=== PATIENT | female | born 1990 | race Caucasian/White ===

== ENCOUNTER 2019-05-30 21:22 | Emergency (ER) | payer OTHER ==
[2019-05-30] MEDS ORDERED: DEXAMETHASONE SOD PHOSPHATE 4 MG/ML 1ML VIAL ONE (23:04)
== END 2019-05-30 23:14 | disposition home or self-care (01) ==
LOC: EDH 21:22
DX: S39.012A Strain of muscle, fascia and tendon of lower back, initial encounter (principal); J45.909 Unspecified asthma, uncomplicated; M19.90 Unspecified osteoarthritis, unspecified site; Z72.0 Tobacco use; Z88.6 Allergy status to analgesic agent; X58.XXXA Exposure to other specified factors, initial encounter; Y93.89 Activity, other specified; Y92.89 Other specified places as the place of occurrence of the external cause; Y99.8 Other external cause status
CPT/HCPCS: 81025; 96372; 99283; J1100

== ENCOUNTER 2020-06-30 22:50 | Emergency (ER) | payer SELFPAY ==
[2020-06-30] MEDS ORDERED: CYCLOBENZAPRINE HCL 10 MG TABLET ONE (23:31)
[2020-06-30] MEDS ORDERED: ONDANSETRON 4MG INJ ONE (23:31)
[2020-06-30] MEDS ORDERED: MORPHINE 4 MG SYG ONE (23:32)
== END 2020-07-01 02:26 | disposition home or self-care (01) ==
LOC: EDH 22:50
DX: M54.31 Sciatica, right side (principal); M19.90 Unspecified osteoarthritis, unspecified site; J45.909 Unspecified asthma, uncomplicated; Z72.0 Tobacco use; Z88.6 Allergy status to analgesic agent
CPT/HCPCS: 96374; 96375; 99284; J2270; J2405

== ENCOUNTER 2020-11-05 03:08 | Emergency (ER) | payer OTHER ==
[~2020-11-05] VITALS: Ht 162.6 cm; Wt 70.3 kg
[2020-11-05 03:11] VITALS: BP 128/62
[2020-11-05] MEDS ORDERED: UNASYN 3GM VIAL IV STA (03:35)
[2020-11-05] MEDS ORDERED: AMP/SULBAC 3GM+NS 100ML 100 ML IV ONE (04:00)
[2020-11-05] MEDS ORDERED: AMPICILLIN/SULBAC 1.5GM VIAL ONE (04:09)
[2020-11-05 04:53] VITALS: BP 125/63
[2020-11-05] MEDS ORDERED: MORPHINE 4 MG SYG ONE (05:35)
[2020-11-05] MEDS ORDERED: ONDANSETRON 4MG INJ ONE (05:35)
[2020-11-05] MEDS ORDERED: METH4TAB3 PO (05:41)
[2020-11-05] MEDS ORDERED: AMOX-429 PO (05:41)
[2020-11-05 05:54] LABS: BASOPHILS % (AUTO) 0.2 % (0.0-5.0); EOSINOPHILS % (AUTO) 1.6 % (0.0-8.0); HEMATOCRIT 29.4 % (36-48); LYMPHOCYTES % (AUTO) 21.7 % (21.0-51.0); MEAN CORPUSCULAR HEMOGLOBIN 32.3 pg (27.0-33.0); MEAN CORPUSCULAR VOLUME 94.8 fL (79-99); MONOCYTES % (AUTO) 5.5 % (3.0-13.0); NEUTROPHILS % (AUTO) 70.6 % (40.0-77.0); PLATELET COUNT (AUTO) 263 K/uL (130-400); RED CELL DISTRIBUTION WIDTH 11.4 % (11.0-15.5); WHITE BLOOD COUNT (AUTO) 14.1 K/uL (4.8-10.8)
[2020-11-05 05:59] VITALS: BP 122/64
[2020-11-05] MEDS ORDERED: ONDANSETRON 4MG INJ IVP ONE (06:00)
[2020-11-05] MEDS ORDERED: MORPHINE 4 MG SYG IV ONE (06:00)
[2020-11-05 06:05] LABS: CREATININE 0.6 mg/dL (0.5-1.5); POTASSIUM 3.3 mmol/L (3.5-5.1)
[2020-11-05] MEDS ORDERED: TRAM50TA4 PO (06:05)
[2020-11-05 06:09] LABS: ALBUMIN 3.5 g/dL (3.5-5.0); BILIRUBIN,TOTAL 0.4 mg/dL (0.2-1.0); TOTAL PROTEIN, SERUM 7.1 g/dL (6.0-8.3)
== END 2020-11-05 06:32 | disposition home or self-care (01) ==
LOC: EDH 03:28
DX: K02.7 Dental root caries (principal); J32.0 Chronic maxillary sinusitis; J45.909 Unspecified asthma, uncomplicated; Z79.899 Other long term (current) drug therapy
CPT/HCPCS: 36415; 70486; 80053; 85025; 96365; 96375; 99284; J0295 ×2; J2270; J2405

== ENCOUNTER 2022-09-30 01:04 | Emergency (ER) | payer BC ==
[~2022-09-30] VITALS: Ht 154.9 cm; Wt 69.9 kg
[~2022-09-30 01:04] MED LIST: AMOX-429 PO; METH4TAB3 PO; TRAM50TA4 PO
[2022-09-30 02:15] LABS: BASOPHILS % (AUTO) 0.2 % (0.0-5.0); EOSINOPHILS % (AUTO) 0.2 % (0.0-8.0); HEMATOCRIT 30.8 % (36-48); LYMPHOCYTES % (AUTO) 4.3 % (21.0-51.0); MEAN CORPUSCULAR HEMOGLOBIN 32.4 pg (27.0-33.0); MEAN CORPUSCULAR HGB CONC 34.7 g/dL (32.0-36.0); MEAN CORPUSCULAR VOLUME 93.3 fL (79-99); MONOCYTES % (AUTO) 4.8 % (3.0-13.0); NEUTROPHILS % (AUTO) 89.3 % (40.0-77.0); PLATELET COUNT (AUTO) 245 K/uL (130-400); RED CELL DISTRIBUTION WIDTH 12.6 % (11.0-15.5); WHITE BLOOD COUNT (AUTO) 24.7 K/uL (4.8-10.8)
[2022-09-30 02:29] LABS: CARBON DIOXIDE 25 mmol/L (21-32); CHLORIDE 102 mmol/L (101-111); CREATININE 0.5 mg/dL (0.5-1.5); GLOMERULAR FILTR. RATE CALC 128 mL/min (>90); GLUCOSE,RANDOM 125 mg/dL (70-105); POTASSIUM 3.3 mmol/L (3.5-5.1); SODIUM SERUM 135 mmol/L (136-145); UREA NITROGEN, BLOOD 11 mg/dL (7-18)
[2022-09-30 02:55] LABS: ALANINE AMINOTRANSFERASE 41 U/L (12-78); ALBUMIN 3.2 g/dL (3.5-5.0); ASPARTATE AMINOTRANSFERASE 28 U/L (10-37); HCG,QUANTITATIVE 19765 mIU/mL (0-5)
[2022-09-30 02:56] LABS: LIPASE < 50 U/L (114-286)
[2022-09-30] MEDS ORDERED: MORPHINE 4 MG SYG IVP ONE (04:00)
[2022-09-30] MEDS ORDERED: ONDANSETRON 4MG INJ IVP ONE (04:00)
[2022-09-30] MEDS ORDERED: HYDR-4060 PO (04:14)
[2022-09-30 05:30] VITALS: BP 105/64
== END 2022-09-30 05:36 | disposition home or self-care (01) ==
LOC: EDH 01:04
DX: O03.4 Incomplete spontaneous abortion without complication (principal); Z79.52 Long term (current) use of systemic steroids; Z3A.08 8 weeks gestation of pregnancy
CPT/HCPCS: 99284; 96374; 76801; 96375; 80053; 84702; 83690; 85025; 86900; 86901; 36415; J2405; J2270

== ENCOUNTER 2022-10-04 15:21 | Observation (INO) | payer BC ==
[~2022-10-04] VITALS: Ht 162.6 cm; Wt 69.9 kg
[~2022-10-04 15:21] MED LIST changes: +HYDR-4060 PO
[2022-10-04 16:17] LABS: BASOPHILS % (AUTO) 0.3 % (0.0-5.0); EOSINOPHILS % (AUTO) 1.5 % (0.0-8.0); HEMATOCRIT 29.2 % (36-48); LYMPHOCYTES % (AUTO) 15.3 % (21.0-51.0); MEAN CORPUSCULAR HEMOGLOBIN 32.4 pg (27.0-33.0); MEAN CORPUSCULAR HGB CONC 34.9 g/dL (32.0-36.0); MEAN CORPUSCULAR VOLUME 92.7 fL (79-99); MONOCYTES % (AUTO) 6.6 % (3.0-13.0); NEUTROPHILS % (AUTO) 75.3 % (40.0-77.0); PLATELET COUNT (AUTO) 297 K/uL (130-400); RED BLOOD CELL COUNT(AUTO) 3.15 MIL/uL (4.00-5.50); RED CELL DISTRIBUTION WIDTH 12.6 % (11.0-15.5); WHITE BLOOD COUNT (AUTO) 15.1 K/uL (4.8-10.8)
[2022-10-04] MEDS ORDERED: ACETAMINOPHEN 500 MG TABLET PO ONE (16:30)
[2022-10-04 16:32] LABS: APPEARANCE,URINE CLEAR (CLEAR); BILIRUBIN,URINE NEGATIVE (NEGATIVE); COLOR,URINE YELLOW (YELLOW); GLUCOSE, URINE (UA) NEGATIVE (NEGATIVE); KETONES,URINE 40 mg/dL (NEGATIVE); LEUKOCYTE ESTERASE ,URINE NEGATIVE Leu/uL (NEGATIVE); NITRATE,URINE NEGATIVE (NEGATIVE); OCCULT BLOOD,URINE MODERATE (NEGATIVE); PH,URINE 7.5 (5.0-8.0); PROTEIN,URINE 20 mg/dL (NEGATIVE); UROBILINOGEN,URINE 0.2 mg/dL (0.2-1.0)
[2022-10-04 16:40] LABS: AMPHET/METH SCREEN,URINE POSITIVE (NEGATIVE); BARBITURATE SCREEN, URINE NEGATIVE (NEGATIVE); BENZODIAZEPINES SCREEN,URINE NEGATIVE (NEGATIVE); CANNABINOID SCREEN,URINE POSITIVE (NEGATIVE); COCAINE SCREEN,URINE NEGATIVE (NEGATIVE); OPIATE SCREEN,URINE NEGATIVE (NEGATIVE); PHENCYCLIDINE SCREEN,URINE NEGATIVE (NEGATIVE)
[2022-10-04 16:42] LABS: ALBUMIN 3.2 g/dL (3.5-5.0); CREATININE 0.5 mg/dL (0.5-1.5)
[2022-10-04 16:48] LABS: BACTERIA,URINE FEW /HPF (None Seen); MUCUS,URINE FEW LPF (None Seen); RBC,URINE 26-50 /HPF (0-1); SQUAMOUS EPITHELIAL CELL,UR MOD /HPF (0-2); YEAST,URINE BUDDING RARE /HPF (None Seen)
[2022-10-04] MEDS ORDERED: POTASSIUM BICARB/CIT AC 25 MEQ TABLET.EFF PO ONE ×2 (17:00)
[2022-10-04] MEDS ORDERED: IOHEXOL-350 75 ML VIAL IV ONE (17:09)
[2022-10-04 19:08] LABS: POTASSIUM 3.4 mmol/L (3.5-5.1)
[2022-10-04] MEDS ORDERED: CEFAZOLIN SODIUM 2 GM VIAL IVPB SCH ×2 (22:00→23:00)
[2022-10-04] MEDS ORDERED: ONDANSETRON 4MG INJ IVP PRN (22:30)
[2022-10-04] MEDS ORDERED: IBUPROFEN 600 MG TABLET PO PRN (22:30)
[2022-10-04] MEDS ORDERED: ACETAMINOPHEN WITH CODEINE 1 TAB TAB PO PRN (22:30)
[2022-10-04] MEDS ORDERED: 0.9%NACL 1000ML 1,000 ML IV SCH (23:00)
[2022-10-04] MEDS: ZOSYN 3.375GM +NS 50ML IVPB SCH (23:13)
[2022-10-04] MEDS: 0.9%NACL 50ML IV SCH (23:13)
[2022-10-04] MEDS: MORPHINE 2 MG SYG IVP PRN (23:19)
[2022-10-05] VITALS (19 sets, daily range): BP systolic 95–129; BP diastolic 49–75
[2022-10-05] MEDS: DEXTROSE 5%-LACTATED RINGERS 1,000 ML IV SCH ×2 (00:52→07:23)
[2022-10-05] MEDS: MORPHINE 2 MG SYG IVP PRN ×2 (02:45→07:41)
[2022-10-05] MEDS ORDERED: MISOPROSTOL 200 MCG TABLET VG SCH ×2 (03:00→05:00)
[2022-10-05] MEDS: ZOSYN 3.375GM +NS 50ML IVPB SCH (07:22)
[2022-10-05] MEDS: 0.9%NACL 50ML IV SCH (07:22)
[2022-10-05] MEDS ORDERED: MIDAZOLAM HCL 1 MG/ML 2ML VIAL ONE (10:49)
[2022-10-05] MEDS ORDERED: MISOPROSTOL 200 MCG TABLET ONE (11:25)
[2022-10-05] MEDS ORDERED: OXYTOCIN 10 USP UNITS/ML ONE (11:29)
== END 2022-10-05 18:40 | disposition home or self-care (01) ==
LOC: EDH 15:21 → INTOOBSV 22:17 → EDHIP 22:17 → WSH 23:54
PROVIDERS: ADMIT Internal Medicine; ATTEND Internal Medicine
DX: O03.4 Incomplete spontaneous abortion without complication (principal); O03.37 Sepsis following incomplete spontaneous abortion; O99.321 Drug use complicating pregnancy, first trimester; F19.90 Other psychoactive substance use, unspecified, uncomplicated; Z3A.10 10 weeks gestation of pregnancy
CPT/HCPCS: 59820; 96365; 96375; 99285; 83735; 84132; 80053; 80305; 85025; 86850; 86900; 86901; 87040 ×2; 83605; 81001; 36415; 74177; 76856; 93005; 96376; 96366; 96367; J2270 ×3; J2543 ×2; Q9967; G0378 ×4; A4606; J2250; J2590; J0690 ×2; J7120

== ENCOUNTER 2023-06-11 15:21 | Emergency (ER) | payer BC ==
[~2023-06-11] VITALS: Ht 162.6 cm; Wt 59.0 kg
[2023-06-11] MEDS: 0.9%NACL 1000ML 1,000 ML IV ONE (18:55)
[2023-06-11] MEDS: ONDANSETRON 4MG INJ IVP ONE (18:55)
[2023-06-11] MEDS: MORPHINE 4 MG SYG IVP ONE (18:56)
[2023-06-11 19:17] LABS: BASOPHILS # (AUTO) 0.05 K/uL (0.00-0.20); BASOPHILS % (AUTO) 0.6 % (0.0-5.0); EOSINOPHILS # (AUTO) 0.44 K/uL (0.00-0.70); EOSINOPHILS % (AUTO) 4.9 % (0.0-8.0); HEMATOCRIT 34.7 % (36-48); IMMATURE GRANULOCYTE ABSOLUTE 0.02 K/uL (0-1); LYMPHOCYTES # (AUTO) 3.2 K/uL (1.0-4.8); MEAN CORPUSCULAR HEMOGLOBIN 31.6 pg (27.0-33.0); MEAN CORPUSCULAR VOLUME 92.8 fL (79-99); MONOCYTES # (AUTO) 0.6 K/uL (0.1-1.0); MONOCYTES % (AUTO) 6.4 % (3.0-13.0); NEUTROPHILS # (AUTO) 4.8 K/uL (1.8-7.7); NEUTROPHILS % (AUTO) 52.9 % (40.0-77.0); PLATELET COUNT (AUTO) 365 K/uL (130-400); RED BLOOD CELL COUNT(AUTO) 3.74 MIL/uL (4.00-5.50); WHITE BLOOD COUNT (AUTO) 9.1 K/uL (4.8-10.8)
[2023-06-11 19:32] LABS: INR <= 0.93 (0.85-1.15); PROTHROMBIN TIME 10.3 SEC (9.6-11.6)
[2023-06-11 19:33] LABS: PARTIAL THROMBOPLASTIN TIME 31.8 SEC (26.3-35.5)
[2023-06-11 19:49] LABS: CREATININE 0.4 mg/dL (0.5-1.5); POTASSIUM 4.6 mmol/L (3.5-5.1)
[2023-06-11 19:51] LABS: ALBUMIN 3.5 g/dL (3.5-5.0); BILIRUBIN,TOTAL 0.3 mg/dL (0.2-1.0); TOTAL PROTEIN, SERUM 7.4 g/dL (6.0-8.3)
[2023-06-11 20:27] LABS: ERYTHROCYTE SEDIMENTATION RATE 58 MM/HR (0-20)
[2023-06-11] MEDS: VANCOMYCIN 750MG VIAL IVPB ONE (20:33)
[2023-06-11] MEDS: 0.9% NACL 250ML IVPB ONE (20:33)
[2023-06-11] MEDS ORDERED: SULF1TAB42 PO (21:48)
[2023-06-11] MEDS ORDERED: CEPH500B PO (21:48)
[2023-06-11] MEDS ORDERED: IBUP-2070 PO (21:48)
[2023-06-11] MEDS: 0.9% NACL 500ML IV.SOLN 500 ML IV ONE (22:30)
[2023-06-12 01:34] VITALS: BP 112/68; PULSE 89; RESP 18; O2SAT 98
== END 2023-06-12 01:36 | disposition home or self-care (01) ==
LOC: EDH 15:21
DX: L02.415 Cutaneous abscess of right lower limb (principal)
CPT/HCPCS: 99284; 96365; 10060; 93971; 96361; 96375; 96366; 82550; 84484; 80053; 85025; 85610; 85730; 85651; 87040 ×2; 83605; 36415; J7030; J2405; J2270; J7050; J3370

== ENCOUNTER 2023-06-14 12:15 | Emergency (ER) | payer BC ==
[~2023-06-14] VITALS: Ht 162.6 cm; Wt 60.8 kg
[~2023-06-14 12:15] MED LIST changes: -AMOX-429 PO; +CEPH500B PO; -HYDR-4060 PO; +IBUP-2070 PO; -METH4TAB3 PO; +SULF1TAB42 PO; -TRAM50TA4 PO
[2023-06-14 15:16] LABS: BASOPHILS # (AUTO) 0.03 K/uL (0.00-0.20); BASOPHILS % (AUTO) 0.4 % (0.0-5.0); EOSINOPHILS # (AUTO) 0.37 K/uL (0.00-0.70); EOSINOPHILS % (AUTO) 5.1 % (0.0-8.0); HEMATOCRIT 36.2 % (36-48); IMMATURE GRANULOCYTE ABSOLUTE 0.02 K/uL (0-1); LYMPHOCYTES # (AUTO) 2.6 K/uL (1.0-4.8); LYMPHOCYTES % (AUTO) 34.8 % (21.0-51.0); MEAN CORPUSCULAR HEMOGLOBIN 31.9 pg (27.0-33.0); MEAN CORPUSCULAR HGB CONC 35.1 g/dL (32.0-36.0); MONOCYTES # (AUTO) 0.4 K/uL (0.1-1.0); NEUTROPHILS # (AUTO) 3.9 K/uL (1.8-7.7); NEUTROPHILS % (AUTO) 53.4 % (40.0-77.0); PLATELET COUNT (AUTO) 381 K/uL (130-400); RED BLOOD CELL COUNT(AUTO) 3.98 MIL/uL (4.00-5.50); RED CELL DISTRIBUTION WIDTH 12.1 % (11.0-15.5); WHITE BLOOD COUNT (AUTO) 7.3 K/uL (4.8-10.8)
[2023-06-14 15:20] LABS: CREATININE 0.7 mg/dL (0.5-1.5); POTASSIUM 3.5 mmol/L (3.5-5.1)
[2023-06-14] MEDS: IBUPROFEN 600 MG TABLET PO ONE (15:22)
[2023-06-14 15:27] VITALS: BP 105/69; PULSE 110; RESP 16; O2SAT 100
[2023-06-14] MEDS: ACETAMINOPHEN 500 MG TABLET PO ONE (15:31)
[2023-06-14] MEDS: ACETAMINOPHEN 500 MG TABLET ONE (15:32)
== END 2023-06-14 16:25 | disposition home or self-care (01) ==
LOC: EDH 12:15
DX: M79.605 Pain in left leg (principal); Z48.00 Encounter for change or removal of nonsurgical wound dressing; Z79.899 Other long term (current) drug therapy; Z88.0 Allergy status to penicillin
CPT/HCPCS: 36415; 80048; 85025

== ENCOUNTER → 2025-01-28 | Emergency (ER) | payer BC, OTHER ==
[~2025-01-28] VITALS: Ht 152.4 cm; Wt 91.2 kg
[~2025-01-28] MED LIST changes: +IBUP-1492 PO; -IBUP-2070 PO; +ONDA-243 PO
--- NOTE | 2025-01-28 19:51 | ERN ---
ED Note History of Present Illness Stated Complaint: VOMITING Chief Complaint: Nausea,Vomiting,Diarrhea Time Seen by MD: 19:46 Dictation: PATIENT IS A 34-YEAR-OLD FEMALE HERE WITH NAUSEA VOMITING ONSET LAST NIGHT AFTER SMOKING ICE. SHE STATES SHE COULD NOT BE AT THIS TIME. HOWEVER SHE IS NOT SURE NO PRIMARY CARE DOCTOR NO ABDOMINAL PAIN. Allergies: Coded Allergies: ketorolac (Unverified Allergy, Unknown, 05/31/19) Home Meds Active Scripts Ibuprofen (Ibuprofen) 600 Mg Tablet, 600 MG PO Q6H PRN for PAIN, #30 TAB Prov:CALI HESS V APPRENTICE ARCHITECT 06/11/23 Cephalexin Monohydrate (Keflex) 500 Mg Cap, 500 MG PO TID for 7 Days, #21 CAP Prov:CALI HESS V APPRENTICE ARCHITECT 06/11/23 Sulfamethoxazole/Trimethoprim (Bactrim Ds Tablet) 800 Mg-160 Mg Tablet, 1 TAB PO BID for 7 Days, #14 TAB 0 Refills Prov:CALI HESS V APPRENTICE ARCHITECT 06/11/23 Past Medical History Past Medical History: No Pertinent History Surgical History: Other Surgical History Other: D AND C Family History: Negative Social History: Drugs, Lives with family History: Not Applicable LMP: Nov 02, 2024 : 5 Para: 2 Aborts: 2 RN Note Reviewed/Agreed w/PFSH: Yes Review of System Dictation CONSTITUTIONAL: NEGATIVE EXCEPT FOR HPI HEAD/FACE: NEGATIVE EXCEPT FOR HPI EENT: NEGATIVE EXCEPT FOR HPI RESPIRATORY: NEGATIVE EXCEPT FOR HPI GASTROINTESTINAL/ABDOMINAL: NEGATIVE EXCEPT FOR HPI NAUSEA VOMITING GENITOURINARY: NEGATIVE EXCEPT FOR HPI MUSCULOSKELETAL: NEGATIVE EXCEPT FOR HPI INTEGUMENTARY: NEGATIVE EXCEPT FOR HPI NEUROLOGICAL/PSYCH: NEGATIVE EXCEPT FOR HPI HEMATOLOGIC/LYMPHATIC: NEGATIVE EXCEPT FOR HPI ALL SYSTEMS NEGATIVE, EXCEPT NOTED ABOVE. 13 POINT REVIEW OF SYSTEMS ASSESSED AND ALL NEGATIVE EXCEPT FOR ABOVE. Initial Vital Sign VS Vital Signs Date Time Temp Pulse Resp B/P (MAP) Pulse Ox O2 Delivery O2 Flow Rate FiO2 01/28/25 19:45 98.6 129 20 150/74 99 Room Air 01/28/25 20:50 0 21 Physical Exam Dictation VITAL SIGNS REVIEWED GENERAL APPEARANCE: ALERT, ORIENTED X 3, N MILD ACUTE DISTRESS, WELL DEVELOPED, NOURISHED. HEAD AND FACE: NON-TRAUMATIC. EYES: PERRL, PINK CONJUNCTIVAS, EYELID NO TRAUMA, ANTERIOR CHAMBER WITH ARCUS SENILIS. EARS: PINNAS INTACT AND NO SIGNS OF TRAUMA OR ERYTHEMA EAR CANALS CLEAR AND NO D ISCHARGE TM NO ERYTHEMA NOSE: NO DISCHARGE, NO BLEEDING. OROPHARYNX: MOUTH NORMAL, TONGUE PINK, PHARYNX CLEAR,NO ERYTHEMA, TONSILS NO EXUDATES, NO ABSCESSES NOTED, MUCOUS MEMBRANE MOIST NECK: SUPPLE, NON-TENDER, NO THYROMEGALY, NO MASSES, NO JVD, NO BRUITS BREAST:DEFERRED CHEST:NO TENDERNESS, NO CREPITUS, NO PARADOXICAL MOVEMENT, NO RETRACTIONS LUNGS:CLEAR, WELL-VENTILATED, SYMMETRIC, NO RALES, NO WHEEZING, NO RHONCHI, NO STRIDOR, GOOD BREATH SOUNDS BILATERALLY HEART: REGULAR RATE, REGULAR RHYTHM, NO MURMUR, NO GALLOPS VASCULAR: NO PERIPHERAL EDEMA, ABDOMEN: SOFT, POSITIVE BOWEL SOUNDS, NONDISTENDED, NO GUARDING, NONTENDER, NO REBOUND, NO MASSES NO HEPATOMEGALY, NO SPLENOMEGALY, NO RAWLS'S SIGN, NO HERNIAS. NO FOCAL PAIN RECTAL: DEFERRED GENITAL: DEFERRED NEUROLOGICAL: NORMAL SPEECH, MOTOR FUNCTION INTACT, SENSORY FUNCTION INTACT MUSCULOSKELETAL: NECK NONTENDER, FULL RANGE OF MOTION, BACK NONTENDER, FULL RANGE OF MOTION, EXTREMITIES: NONTENDER, FULL RANGE OF MOTION SKIN: COLOR PINK, DRY, NO TURGOR, NO RASH, NO LACERATIONS, NO ABRASIONS, NO CONTUSIONS. LYMPHATIC: DEFERRED Results (Laboratory/Radiology) Laboratory/Radiology Laboratory Tests Test 01/28/25 20:06 01/28/25 21:09 White Blood Count 11.3 K/uL (4.8-10.8) H Red Blood Count 3.65 MIL/uL (4.00-5.50) L Hemoglobin 11.6 g/dL (12.0-16.0) L Hematocrit 34.0 % (36-48) L Mean Corpuscular Volume 93.2 fL (79-99) Mean Corpuscular Hemoglobin 31.8 pg (27.0-33.0) Mean Corpuscular Hemoglobin Concent 34.1 g/dL (32.0-36.0) Red Cell Distribution Width 12.1 % (11.0-15.5) Platelet Count 286 K/uL (130-400) Mean Platelet Volume 9.4 fL (7.5-10.5) Immature Granulocyte % (Auto) 0.4 % (0-1) Neutrophils (%) (Auto) 74.4 % (40.0-77.0) Lymphocytes (%) (Auto) 17.5 % (21.0-51.0) L Monocytes (%) (Auto) 6.4 % (3.0-13.0) Eosinophils (%) (Auto) 1.1 % (0.0-8.0) Basophils (%) (Auto) 0.2 % (0.0-5.0) Neutrophils # (Auto) 8.4 K/uL (1.8-7.7) H Lymphocytes # (Auto) 2.0 K/uL (1.0-4.8) Monocytes # (Auto) 0.7 K/uL (0.1-1.0) Eosinophils # (Auto) 0.12 K/uL (0.00-0.70) Basophils # (Auto) 0.02 K/uL (0.00-0.20) Absolute Immature Granulocyte (auto 0.04 K/uL (0-1) Nucleated Red Blood Cells 0.0 % (0.0-0.19) Sodium Level 132 mmol/L (136-145) L Potassium Level 3.0 mmol/L (3.5-5.1) *L Chloride Level 98 mmol/L (101-111) L Carbon Dioxide Level 28 mmol/L (21-32) Blood Urea Nitrogen 11 mg/dL (7-18) Creatinine 0.5 mg/dL (0.5-1.0) Glomerular Filtration Rate Calc 125 mL/min (>90) Random Glucose 89 mg/dL (70-105) Total Calcium 8.9 mg/dL (8.5-10.1) Human Chorionic Gonadotropin, Quant 73993 mIU/mL (0-5) H Serum Test, Qualitative POSITIVE (NEGATIVE) H Urine Color YELLOW (YELLOW) Urine Appearance CLOUDY (CLEAR) H Urine pH 6.0 (5.0-8.0) Urine Specific [place] 1.027 (1.001-1.031) Urine Protein 20 mg/dL (NEGATIVE) H Urine Glucose (UA) NEGATIVE mg/dL (NEGATIVE) Urine Ketones 5 mg/dL (NEGATIVE) H Urine Occult Blood MODERATE (NEGATIVE) H Urine Nitrate NEGATIVE (NEGATIVE) Urine Bilirubin NEGATIVE mg/dL (NEGATIVE) Urine Urobilinogen 0.2 mg/dL (0.2-1.0) Urine Leukocyte Esterase 500 Bridgett/uL (NEGATIVE) H Urine RBC 11-25 /HPF (0-1) H Urine WBC 26-50 /HPF (0-1) H Urine Squamous Epithelial Cells MANY /HPF (0-2) Urine Bacteria RARE /HPF (None Seen) Labs Reviewed?: Yes ED Course ED Course Orders Procedure Category Date Status Time Cbc With Differential LAB 01/28/25 Complete 19:48 Urinalysis Profile LAB 01/28/25 Complete 19:48 Basic Metabolic Panel LAB 01/28/25 Complete 19:48 Ondansetron Odt 4mg PHA 01/28/25 Complete Tab (Zofran 4mg Odt) 20:00 Testing, LAB 01/28/25 Complete Serum Hcg 20:54 Potassium Chloride PHA 01/28/25 Complete 20meq Er (K-Dur/Klor- 21:00 Culture Urine CHRISTINE 01/28/25 In Process 21:31 Hcg,Quantitative LAB 01/28/25 Complete 21:42 Us Ob <14 Weeks US 01/28/25 Resulted 21:42 Ceftriaxone 1g Vial PHA 01/28/25 Complete (Rocephine 1g Inj) 22:00 Current Medications Medications (Trade) Dose Ordered Sig/Aparna Route PRN Reason Start Time Stop Time Status Last Admin Dose Admin Ceftriaxone Sodium (ROCEphine 1G INJ) 1 gm ONCE ONCE IVPB 01/28/25 22:00 01/28/25 22:01 DC 01/28/25 21:53 Ondansetron HCl (zoFRAN 4MG ODT) 4 mg ONCE ONCE SL 01/28/25 20:00 01/28/25 20:01 DC 01/28/25 20:28 Potassium Chloride (K-Dur/Klor-Con 20meq) 40 meq ONCE ONCE PO 01/28/25 21:00 01/28/25 21:01 DC 01/28/25 21:07 Vital Signs Date Time Temp Pulse Resp B/P (MAP) Pulse Ox O2 Delivery O2 Flow Rate FiO2 01/28/25 20:50 98.4 75 18 115/66 98 Room Air* 0 21 01/28/25 19:45 98.6 129 20 150/74 99 Room Air Medical Decision Making MDM MDM: 34-year-old female presenting to the ER for evaluation of nausea. While in the emergency department she was found to be . Patient was not aware of this. CBC shows slight [place] [address]. Chemistries show hypokalemia with a potassium of 3.0. The patient was given oral potassium in the ER. A pelvic ultrasound was performed which revealed an intrauterine gestation measuring approximately 12 weeks and one day with positive heart tones. Lab and imaging were discussed with the patient and she will be follow up with OBGYN outpatient. Differential diagnosis: Dehydration, electrolyte abnormality, There are no social concerns with this patient. Prescription drug management Prescriptions will include: Zofran and Keflex Medical management and examination interpretation discussions were had by me with other qualified healthcare professionals as indicated for the patient's care. DX & DISP Disposition: Discharge Departure Impression: Primary Impression: First trimester Additional Impression: Urinary tract infection Condition: Stable Scripts Ondansetron (Ondansetron Odt) 4 Mg Tab.rapdis 4 MG PO BID for 7 Days, #14 TAB Prov: LENIN SHEFFIELD 01/28/25 Cephalexin Monohydrate (Keflex) 500 Mg Cap 500 MG PO QID for 7 Days, #28 CAP Prov: LENIN SHEFFIELD 01/28/25 Additional Instructions: Your blood work today showed a low-level of potassium that was replaced in the emergency department. Your pelvic ultrasound revealed an intrauterine measuring 12 weeks and one days with positive heart tones. The remainder of your blood work was unremarkable. Your urinalysis was consistent with infection. You were given an antibiotic shot in the emergency department and will be discharged home with a prescription for oral antibiotics. Please take your antibiotics as prescribed. Follow up with your OBGYN for further evaluation. Referrals: SELF,REFERRAL (PCP) LUZ SALDAÑA MD, JAROD N MD Time of Disposition: 23:27 I have reviewed the case, and I agree with, Diagnosis and Plan I performed the substantive portion of the visit. I have reviewed and personally made and approve the management plan that is documented in the note by myself or the MIGUEL ANGEL. I acknowledge for responsibility for the patient's jonas rony plan. GUTIERREZ HAGER NP Jan 28, 2025 19:51 LENIN SHEFFIELD Jan 28, 2025 23:31
[2025-01-28 20:13] LABS: IMMATURE GRANULOCYTE ABSOLUTE 0.04 K/uL (0-1); NUCLEATED RED BLOOD CELLS 0.0 % (0.0-0.19); PLATELET COUNT (AUTO) 286 K/uL (130-400); RED BLOOD CELL COUNT(AUTO) 3.65 MIL/uL (4.00-5.50); RED CELL DISTRIBUTION WIDTH 12.1 % (11.0-15.5); WHITE BLOOD COUNT (AUTO) 11.3 K/uL (4.8-10.8)
[2025-01-28 20:40] LABS: CREATININE 0.5 mg/dL (0.5-1.0); GLOMERULAR FILTR. RATE CALC 125.0 mL/min (>90); GLUCOSE,RANDOM 89.0 mg/dL (70-105); SODIUM SERUM 132.0 mmol/L (136-145); UREA NITROGEN, BLOOD 11.0 mg/dL (7-18)
[2025-01-28] MEDS: PoTASSium chloRIDE 20MEQ ER 20 MEQ ERTAB PO ONE (21:07)
[2025-01-28 21:29] LABS: APPEARANCE,URINE CLOUDY (CLEAR); GLUCOSE, URINE (UA) NEGATIVE (NEGATIVE); LEUKOCYTE ESTERASE ,URINE 500 Leu/uL (NEGATIVE); NITRATE,URINE NEGATIVE (NEGATIVE); OCCULT BLOOD,URINE MODERATE (NEGATIVE)
[2025-01-28 21:31] LABS: ADD UA MICROSCOPIC YES
[2025-01-28 21:36] LABS: SQUAMOUS EPITHELIAL CELL,UR MANY /HPF (0-2)
--- NOTE | 2025-01-28 23:06 | HMCIMG ---
EXAMINATION: OB Ultrasound less than 14 weeks. CLINICAL HISTORY: Amenorrhea. COMPARISON: None. TECHNIQUE: Grayscale and color ultrasound images were obtained utilizing both transabdominal and transvaginal transducers. FINDINGS: LMP: 11/05/2024, 12 weeks and 0 days. The uterus measures 13.5 x 6.7 x 9.0 cm. The gestation sac diameter measures 8.1 x 1.6 x 7.4 cm. There is a single, live intrauterine with an approximate gestational age of 12 weeks and 1 day as per the crown-rump length, which measures 5.4 cm, and a regular heart rate of 167 bpm. There is no evidence of subchorionic hemorrhage. The cervix measures 0.0 cm and is normal in length. Internal Os closed. EDC (by LMP): 08/12/2025 and EDC (by measurement): 08/16/2025. The right ovary is obscured by overlying bowel gas. The left ovary is normal in caliber and measures 2.7 x 1.1 x 2.0 cm. There is no free fluid within the pelvis. IMPRESSION: Live intrauterine with an approximate gestational age of 12 weeks and 1 day, and a regular heart rate of 167 bpm. /[place]
[2025-01-28 23:41] VITALS: BP 125/55; PULSE 70; RESP 20; TEMP 98.4; O2SAT 99
== END ==
LOC: EDH 19:44
DX: O23.41 Unspecified infection of urinary tract in pregnancy, first trimester (principal); N39.0 Urinary tract infection, site not specified; Z3A.12 12 weeks gestation of pregnancy; Z79.899 Other long term (current) drug therapy
CPT/HCPCS: 99285; 96374; 76801; 80048; 84703; 84702; 85025; 87086; 81001; 36415; J0696

== ENCOUNTER 2025-03-24 01:10 | Emergency (ER) | payer OTHER ==
[~2025-03-24] VITALS: Ht 162.6 cm; Wt 92.1 kg
--- NOTE | 2025-03-24 01:21 | NUR ---
PT CARE ASSUMED AT THIS TIME
--- NOTE | 2025-03-24 02:06 | NUR ---
[facility]'S DEPARTMENT NOTIFIED ABOUT ANIMAL BITE
[2025-03-24] MEDS: AMOX/CLAV 875/125MG TAB PO ONE (02:14)
--- NOTE | 2025-03-24 02:20 | NUR ---
CONTINUATION OF SKIN ASSESSMENT BRUISING AND REDNESS NOTED TO RIGHT HAND NO PUNCTURE OR BLEEDING NOTED.
--- NOTE | 2025-03-24 02:34 | HMCIMG ---
EXAM: CR right Hand, 3 Views. CLINICAL HISTORY: dog bite COMPARISON: None provided. FINDINGS: BONES: No acute fracture or aggressive appearing osseous lesion. JOINTS: No evidence of dislocation. The joint spaces are normal. SOFT TISSUES: Mild soft tissue swelling. No radiopaque foreign body is seen. IMPRESSION: No acute pathology evident. No acute fracture or dislocation. Mild subcutaneous edema. /[place]
[2025-03-24] MEDS ORDERED: AMOX1TAB16 PO (02:55)
--- NOTE | 2025-03-24 02:56 | NUR ---
SPOKE TO LULÚ FROM [facility]'S OFFICE. PER LULÚ REPORT WILL BE DONE OVER TELEPHONE.
--- NOTE | 2025-03-24 02:56 | ERN ---
ED Note History of Present Illness Stated Complaint: C/O DOG BITE TO LEFT HAND Chief Complaint: Animal Bite Time Seen by MD: 01:12 Time Seen by Midlevel: 01:12 Dictation: The patient is a 34-year-old female with no significant past medical history who reports being five months who presents to the emergency department with complaints of dog bite to the left hand onset prior to arrival. Patient reports that her dog got tangled with a another stray dog and she was trying to untangle them. Reports that her dog's chain got stuck to the skin of the stray dog and it would caused him pain every time her own dog moved because it would injure the stray dog and during the attempts to separate them the dog bit her hand. Patient has unknown last tetanus. Reports that the dog usually is around the neighborhood. Denies any OB complaints denies any abdominal trauma Allergies: Coded Allergies: ketorolac (Unverified Allergy, Unknown, 05/31/19) Home Meds Active Scripts Ondansetron (Ondansetron Odt) 4 Mg Tab.rapdis, 4 MG PO BID for 7 Days, #14 TAB Prov:LENIN SHEFFIELD PAC 01/28/25 Cephalexin Monohydrate (Keflex) 500 Mg Cap, 500 MG PO QID for 7 Days, #28 CAP Prov:LENIN SHEFFIELD PAC 01/28/25 Ibuprofen (Ibuprofen) 600 Mg Tablet, 600 MG PO Q6H PRN for PAIN, #30 TAB Prov:CLAI HESS V PASSENGER CAR INSPECTOR 06/11/23 Cephalexin Monohydrate (Keflex) 500 Mg Cap, 500 MG PO TID for 7 Days, #21 CAP Prov:CALI HESS V PASSENGER CAR INSPECTOR 06/11/23 Sulfamethoxazole/Trimethoprim (Bactrim Ds Tablet) 800 Mg-160 Mg Tablet, 1 TAB PO BID for 7 Days, #14 TAB 0 Refills Prov:CALI HESS V PASSENGER CAR INSPECTOR 06/11/23 Past Medical History Past Medical History: No Pertinent History Surgical History: None Surgical History Other: D AND C Family History: Negative Social History: Drugs, Lives with family History: Not Applicable : 5 Para: 2 Aborts: 2 RN Note Reviewed/Agreed w/PFSH: Yes Review of System Dictation Constitutional: Negative for fever,chills, and weight loss Eyes: Negative for injury, pain,redness, and discharge ENT: Negative for injury,pain or swelling Cardiovascular: Negative for chest pain, palpitations, and edema Respiratory: Negative for shortness of breath, cough, and wheezing, Abdomen/GI: Negative for abdominal pain, nausea, vomiting, diarrhea, and constipation Back: Negative for injury and pain : Negative for injury, bleeding and discharge MS/Extremity: Negative for injury and deformity Skin: Negative for rash, and discoloration positive for dog bite to left hand Neuro: Negative for headache, weakness, numbness, tingling, and seizure Psych: Negative for suicide ideation, homicidal ideation, and hallucinations Initial Vital Sign VS Vital Signs Date Time Temp Pulse Resp B/P (MAP) Pulse Ox O2 Delivery O2 Flow Rate FiO2 03/24/25 01:12 98.1 133 20 149/98 98 Room Air 03/24/25 01:35 0 21 Physical Exam Dictation Vital Signs reviewed General Appearance: Alert, oriented x 3, no acute distress, well developed, nourished. Head and Face: non-traumatic. Eyes: PERRL, pink conjunctivas, eyelid no trauma, anterior chamber with arcus senilis. Ears: Pinnas intact and no signs of trauma or erythema ear canals clear and no discharge TM no erythema Nose: No discharge, no bleeding. Oropharynx: Mouth normal, tongue pink. pharynx clear,no erythema, tonsils no exudates, no abscesses noted, mucous membrane moist Neck: Supple, non-tender, no thyromegaly, no masses, no JVD, no bruits Breast:Deferred Chest:No tenderness, no crepitus, no paradoxical movement, no retractions Lungs:Clear, well-ventilated, symmetric, no rales, no wheezing, no rhonchi, no stridor, good breath sounds bilaterally Heart: Regular rate, regular rhythm, no murmur, no gallops Vascular: no peripheral edema, Abdomen: Soft, positive bowel sounds, nondistended, no guarding, nontender, no rebound, no masses no hepatomegaly, no splenomegaly, no Velasquez's sign, no hernias. Rectal: Deferred Genital: Deferred Neurological: Normal speech, motor function intact, sensory function intact Musculoskeletal: Neck nontender, full range of motion, back nontender, full range of motion, Extremities: nontender, full range of motion Skin: Color pink, dry, no turgor, no rash, no lacerations, no abrasions, no contusions. Two puncture wounds to the palm of the left hand, two puncture wound to anterior and posterior distal 4th finger, minimal bleeding Lymphatic: Deferred Results (Laboratory/Radiology) Laboratory/Radiology REASON: dog bite ORDERING PHYSICIAN: ANILA ELIZABETH PROCEDURE: HAND 3V LT - HAND 3+VWS LT EXAM: CR right Hand, 3 Views. CLINICAL HISTORY: dog bite COMPARISON: None provided. FINDINGS: BONES: No acute fracture or aggressive appearing osseous lesion. JOINTS: No evidence of dislocation. The joint spaces are normal. SOFT TISSUES: Mild soft tissue swelling. No radiopaque foreign body is seen. IMPRESSION: No acute pathology evident. No acute fracture or dislocation. Mild subcutaneous edema. /[place] Labs Reviewed?: Yes ED Course ED Course Orders Procedure Category Date Status Time Acetaminophen 500mg PHA 03/24/25 Complete Tab (Tylenol 500mg T 02:00 Wound Care (Er) CPOE 03/24/25 Transmitted 01:31 Hand 3+Vws Lt RAD 03/24/25 Resulted 01:31 Amox/Clav 875/125mg PHA 03/24/25 Complete Tab (Augmentin 875-1 02:00 Tetanus,Diphtheria PHA 03/24/25 Complete Tox [Adult] (Diphther 02:00 *Nursing CPOE 03/24/25 Transmitted Communication: 01:40 Current Medications Medications (Trade) Dose Ordered Sig/Aparna Route PRN Reason Start Time Stop Time Status Last Admin Dose Admin Acetaminophen (TYLenol 500MG TAB) 1,000 mg ONCE ONCE PO 03/24/25 02:00 03/24/25 02:01 DC 03/24/25 02:14 Amoxicillin/ Clavulanate Potassium (Augmentin 875-125 Tablet) 1 each ONCE ONCE PO 03/24/25 02:00 03/24/25 02:01 DC 03/24/25 02:14 Tetanus/ Diphtheria Toxoids Adsorbed (DiphthERIA-teTANUS TOXOID [ADULT]/ DECAVAC) 0.5 ml ONCE ONCE IM 03/24/25 02:00 03/24/25 02:01 DC 03/24/25 02:13 Vital Signs Date Time Temp Pulse Resp B/P (MAP) Pulse Ox O2 Delivery O2 Flow Rate FiO2 03/24/25 01:35 98.1 119 17 150/79 100 Room Air* 0 21 03/24/25 01:12 98.1 133 20 149/98 98 Room Air Medical Decision Making MDM The patient is a 34-year-old female with no significant past medical history who reports being five months who presents to the emergency department with complaints of dog bite to the left hand onset prior to arrival. Patient reports that her dog got tangled with a another stray dog and she was trying to untangle them. Reports that her dog's chain got stuck to the skin of the stray dog and it would caused him pain every time her own dog moved because it would injure the stray dog and during the attempts to separate them the dog bit her hand. Patient has unknown last tetanus. Reports that the dog usually is around the neighborhood. Denies any OB complaints denies any abdominal trauma Patient had a shield x-ray which showed no fractures. Wounds were cleaned. Wounds were small in no need for any repair at this time. Patient was updated for tetanus. Spoke to pharmacy about possible rabies vaccine and reports that there is a risk for injury. I spoke to patient's about a discharge planning. Patient needs to follow up with animal control and the Health Department. The dog attack was provoked. No other signs of rabies from the dog but dog we will need to be found so they can monitor the dog. Animal control was contacted by the ER. Differential diagnosis: Hand fracture, dog bite, laceration Need for hospitalization: Patient does not meet criteria for hospitalization. There are no social concerns with this patient. DX & DISP Disposition: Discharge Departure Impression: Primary Impression: Dog bite of hand Condition: Stable Scripts Amoxicillin/Potassium Clav (Amox Tr-K Clv 875-125 mg Tab) 875 Mg-125 Mg Tablet 1 EACH PO BID for 5 Days, #10 TAB 0 Refills Prov: ELIZABETHMARIAH CURRIESELIN STRONG 03/24/25 Additional Instructions: Please follow up with animal control and the Health Department. Monitor for any signs of infection to your wound. If you develop any severe fatigue, delirium or hallucinations, confusion or if anything worsens please return to ER. Follow up with the your OBGYN. Keep your wound clean and dry. Do not put your wound under water, such as in a bath, pool, or garcia. This can slow healing and raise your chance of getting an infection. You should call your doctor if you develop any fever, redness or swelling around the cut, or pus draining from the cut. FOLLOW-UP WITH PRIMARY CARE PROVIDER IN 1 TO 2 DAYS. TAKE MEDICATIONS DIRECTED HERE IN THE EMERGENCY ROOM. OKAY TO CONTINUE HOME MEDICATIONS UNLESS OTHERWISE DISCUSSED DURING YOUR VISIT IN THE EMERGENCY ROOM TODAY. RETURN TO YOUR NEAREST EMERGENCY ROOM IF SYMPTOMS WORSEN OR IF THERE IS NO IMPROVEMENT. CALL 911 IF YOU NEED IMMEDIATE ASSISTANCE. TAKE TYLENOL [id number] NEEDED AND IF NO CONTRAINDICATIONS ARE PRESENT. INCREASE ORAL HYDRATION. A WOUND CULTURE OR URINE CULTURE WAS ORDERED HERE IN THE EMERGENCY ROOM DEPARTMENT PLEASE FOLLOW-UP WITH PRIMARY CARE PROVIDER AND ADVISE THEM TO GET REPEAT PORTS FROM OUR FACILITY. IF YOU HAD ANY PALLAVI WRAP/SPLINTS THAT WERE APPLIED HERE, PLEASE DO NOT REMOVE THEM UNTIL YOU SEE YOUR PRIMARY CARE OR SPECIALTY. Referrals: SELF,REFERRAL (PCP) Time of Disposition: 02:54 I have reviewed the case, and I agree with, Diagnosis and Plan ANILA ELIZABETH PASSENGER CAR INSPECTOR Mar 24, 2025 02:56
[2025-03-24 03:12] VITALS: BP 132/89; PULSE 97; RESP 16; TEMP 98.1; O2SAT 100
--- NOTE | 2025-03-24 03:13 | NUR ---
WOUND CARE DONE ORDERED BY HETAL HIGH
== END 2025-03-24 03:22 | disposition home or self-care (01) ==
LOC: EDH 01:10
DX: O9A.211 Injury, poisoning and certain other consequences of external causes complicating pregnancy, first trimester (principal); S61.452A Open bite of left hand, initial encounter; Z88.6 Allergy status to analgesic agent; Z79.899 Other long term (current) drug therapy; W54.0XXA Bitten by dog, initial encounter; Y93.89 Activity, other specified; Y92.89 Other specified places as the place of occurrence of the external cause; Y99.8 Other external cause status
CPT/HCPCS: 73130; 90471; 90714; 99283